=== PATIENT | male | born 1985 | race Caucasian/White ===

== ENCOUNTER 2016-11-24 13:42 | Emergency (ER) | payer OTHER ==
[~2016-11-24] VITALS: Ht 175.3 cm; Wt 73.1 kg
[2016-11-24] MEDS ORDERED: PERCOCET 5/31 TABLET PO (16:28)
[2016-11-24 16:45] VITALS: BP 120/86
== END 2016-11-24 17:41 | disposition home or self-care (01) ==
LOC: EME 13:42
DX: S20.212A Contusion of left front wall of thorax, initial encounter (principal); R07.89 Other chest pain; W14.XXXA Fall from tree, initial encounter; Y93.89 Activity, other specified; F17.200 Nicotine dependence, unspecified, uncomplicated
CPT/HCPCS: 71020; 99281; 99284